=== PATIENT | female | born 1955 | race Caucasian/White ===

== ENCOUNTER 2017-02-10 21:58 | Observation (INO) ==
[2017-02-10] MEDS ORDERED: Nitroglycerin 1 INCH/GM PACKET TP ONE (22:01)
--- NOTE | 2017-02-10 22:03 | Emergency Department Note ---
Disposition Clinical Impression: Chest pain Qualifiers: Chest pain type: unspecified Qualified Code(s): R07.9 - Chest pain, unspecified Disposition: Admitted As Inpatient Condition: Good Referrals: NO,PCP [Non-Partnered Physician] - Forms: ED Satisfaction Letter Chest Pain HPI - General Chief Complaint: ED Chest Pain Stated Complaint: Chest pain while shopping at [employer] - History of Present Illness HPI Narrative: Patient presents to the emergency department for evaluation of chest pain. Patient states that she developed substernal chest pressure while walking at [employer]. She denies radiation or migration of the pain. She states that she had some minimal dyspnea associated with this pain but no nausea vomiting or diaphoresis. EMS was contacted, she received 324 mg of aspirin and one sublingual nitroglycerin at the scene. Patient states that her pain is not resolved. She reports a history of coronary artery disease and a heart attack though she does not recall the history regarding this and does not know of any intervention was necessary for her prior cardiac event. - Related Data Home Medications Medication Instructions Recorded Confirmed Hydrochlorothiazide [Microzide] 12.5 mg PO DAILY 12/07/16 02/10/17 Lisinopril [Zestril] 80 mg PO DAILY 12/07/16 02/10/17 Sennosides/Docusate Sodium [Senna 1 each PO DAILY 12/07/16 02/10/17 Plus] Simvastatin [Zocor] 20 mg PO HS 12/07/16 02/10/17 Allergies Allergy/AdvReac Type Severity Reaction Status Date / Time Erythromycin Base Allergy Hives Verified 06/07/15 21:02 quetiapine [From Seroquel] Allergy Numbness Verified 06/07/15 21:02 Constitutional: Denies: fever, chills, weakness ENT ED: Denies: throat pain, dysphagia Cardiovascular: Reports: chest pain. Denies: palpitations, dyspnea on exertion , orthopnea, edema, paroxysmal nocturnal dyspnea Respiratory: Reports: dyspnea. Denies: cough, wheezes, hemoptysis, stridor Gastrointestinal: Denies: abdominal pain, nausea, vomiting, diarrhea, melena, hematochezia Genitourinary: Denies: urgency, dysuria Musculoskeletal: Denies: back pain, neck pain, joint swelling Integumentary: Denies: rash Neurological: Denies: headache, weakness, numbness, paresthesias Psychiatric: Denies: anxiety, depression Endocrine: Denies: fatigue Hematological/Lymphatic: Denies: easy bleeding Allergic/Immunologic: Denies: facial swelling Chest Pain PMH - Past Medical History Medical history: Reports: GERD, hyperlipidemia, hypertension, other (Thyroid nodule) Surgical history: Reports: no surgical history Psychiatric history: Reports: anxiety, bipolar, depression CLIENT ADMINISTRATOR history: Reports: cervical cancer - Social History Smoking Status: Never smoker Alcohol use: Reports: none Drug use: Reports: none Father Family Medical History Unknown: Yes (Patient reports a family history of coronary artery disease with father) Physical Exam - General Limitations: no limitations General appearance: alert, in no apparent distress (Patient resting comfortably smiling interactive alert and appropriate and cooperative) - Head Head exam: atraumatic, normocephalic - Eye Eye exam: Present: normal appearance. Absent: scleral icterus - ENT ENT exam: normal exam, normal oropharynx, mucous membranes moist - Neck Neck exam: Present: normal inspection - Chest Chest inspection: Present: normal inspection - Respiratory Respiratory exam: Present: normal lung sounds bilaterally - Cardiovascular Cardiovascular exam: Present: normal rhythm, normal heart sounds - Abdominal Exam Abdominal exam: Present: soft, Non-Tender, normal bowel sounds - Extremities Exam Extremities exam: Present: normal inspection, full ROM, normal capillary refill. Absent: tenderness, pedal edema, joint swelling, calf tenderness - Expanded Lower Extremity Exam Neurovascular/Tendon exam: Present: normal capillary refill. Absent: pulse deficit, motor deficit, sensory deficit, extremity cold to touch, pallor - Back Exam Back exam: Present: normal inspection. Absent: tenderness, CVA tenderness (R), CVA tenderness (L) - Neurological Exam Neurological exam: Present: alert, oriented X3 - Psychiatric Psychiatric exam: Present: normal affect, normal mood - Skin Skin exam: Present: warm, dry, intact Course Vital Signs Temperature 98.5 F 02/10/17 22:01 Pulse Rate 77 02/10/17 22:01 Respiratory Rate 16 02/10/17 22:01 Blood Pressure 183/99 02/10/17 22:01 O2 Sat by Pulse Oximetry 99 02/10/17 22:01 Temperature 98.5 F 02/10/17 22:03 Pulse Rate 69 02/10/17 23:26 Respiratory Rate 18 02/10/17 23:26 Blood Pressure 136/90 02/10/17 23:26 O2 Sat by Pulse Oximetry 98 02/10/17 23:26 Oxygen Delivery Oxygen Delivery Nasal Cannula Chest Pain - Medical Records I discussed the case with Dr. Mcneil at 2330. Patient will be admitted to the hospitalist service for serial cardiac enzymes and further evaluation of her symptoms. Patient continues to be asymptomatic at this time. - Lab Data Lab results reviewed: Yes I reviewed the patient's lab results. Result diagrams: 02/10/17 22:16 02/10/17 22:16 Lab Results 02/10/17 02/10/17 02/10/17 Range/Units 22:16 22:16 22:16 WBC 6.4 (4.3-11.1) K/mcL RBC 4.67 (3.82-4.97) M/mcL Hgb 13.3 (11.5-15.4) g/dL Hct 38.6 (35.3-44.9) % MCV 82.7 L (83.0-100.0) fL MCH 28.5 (28.0-33.3) pg MCHC 34.5 (31.6-35.5) g/dL RDW 12.4 (11.5-14.5) % Plt Count 222 (140-400) K/mcL MPV 10.5 (9.4-12.4) fL Immature Gran % 0.2 (0-4) % Seg Neutrophils % 64.5 % Lymphocytes % 24.5 % Monocytes % 10.0 % Eosinophils % 0.6 % Basophils % 0.2 % Neutrophils # 4.1 (1.6-8.9) K/mcL Lymphocytes # 1.6 (0.6-4.6) K/mcL Monocytes # 0.6 (0.0-1.3) K/mcL Eosinophils # 0.0 (0.0-0.6) K/mcL Basophils # 0.0 (0.0-0.2) K/mcL PT 11.1 (9.4-12.1) Seconds INR 1.0 APTT 32.3 (26.0-36.0) Seconds Sodium (136-145) mEq/L Potassium (3.5-4.5) mEq/L Chloride (98-109) mEq/L Carbon Dioxide (19-29) mEq/L BUN (7-20) mg/dL Creatinine (0.57-1.11) mg/dL Est GFR ( Amer) (> 60) Est GFR (Non-Af Amer) (> 60) BUN/Creatinine Ratio (6-26) Glucose (70-99) mg/dL Calculated Osmolality (280-300) Calcium (8.6-10.8) mg/dL Total Bilirubin 0.4 (0.2-1.2) mg/dL Direct Bilirubin 0.2 (0.0-0.5) mg/dL Indirect Bilirubin 0.2 (0.0-1.2) mg/dL AST 14 (5-34) Units/L ALT 12 (0-55) Units/L Alkaline Phosphatase 62 (38-126) Units/L Troponin I (0-0.03) ng/mL Serum Total Protein 6.8 (6.0-8.3) g/dL Albumin 4.0 (3.5-5.0) g/dL Globulin 2.8 (2.4-3.5) g/dL Albumin/Globulin Ratio 1.4 (1.1-2.2) Lipase 15 (8-78) Units/L 02/10/17 02/10/17 Range/Units 22:16 22:16 WBC (4.3-11.1) K/mcL RBC (3.82-4.97) M/mcL Hgb (11.5-15.4) g/dL Hct (35.3-44.9) % MCV (83.0-100.0) fL MCH (28.0-33.3) pg MCHC (31.6-35.5) g/dL RDW (11.5-14.5) % Plt Count (140-400) K/mcL MPV (9.4-12.4) fL Immature Gran % (0-4) % Seg Neutrophils % % Lymphocytes % % Monocytes % % Eosinophils % % Basophils % % Neutrophils # (1.6-8.9) K/mcL Lymphocytes # (0.6-4.6) K/mcL Monocytes # (0.0-1.3) K/mcL Eosinophils # (0.0-0.6) K/mcL Basophils # (0.0-0.2) K/mcL PT (9.4-12.1) Seconds INR APTT (26.0-36.0) Seconds Sodium 146 H (136-145) mEq/L Potassium 3.6 (3.5-4.5) mEq/L Chloride 109 (98-109) mEq/L Carbon Dioxide 24 (19-29) mEq/L BUN 8 (7-20) mg/dL Creatinine 0.72 (0.57-1.11) mg/dL Est GFR ( Amer) > 60 (> 60) Est GFR (Non-Af Amer) > 60 (> 60) BUN/Creatinine Ratio 11 (6-26) Glucose 101 H (70-99) mg/dL Calculated Osmolality 300 (280-300) Calcium 9.8 (8.6-10.8) mg/dL Total Bilirubin (0.2-1.2) mg/dL Direct Bilirubin (0.0-0.5) mg/dL Indirect Bilirubin (0.0-1.2) mg/dL AST (5-34) Units/L ALT (0-55) Units/L Alkaline Phosphatase (38-126) Units/L Troponin I 0.00 (0-0.03) ng/mL Serum Total Protein (6.0-8.3) g/dL Albumin (3.5-5.0) g/dL Globulin (2.4-3.5) g/dL Albumin/Globulin Ratio (1.1-2.2) Lipase (8-78) Units/L ITS Impressions Chest X-Ray 02/10/17 22:01 IMPRESSION: No acute process. D/ / 02/10/2017 22:53:06 Kuldeep Greco MD / carolyn Interpreting Provider: Kuldeep Greco MD - Radiology Data Radiology results reviewed: Yes I reviewed the patient's radiology results. - EKG Data EKG attestation: Yes I reviewed and interpreted this EKG. EKG shows normal: sinus rhythm (Normal sinus rhythm with rate of 74. Minimal ST depression in the inferior and anterior leads. No arrhythmia. Normal axis. When compared to an EKG from June 2014 these do not appear to be acute changes.)
[2017-02-10 22:24] LABS: Basophils % 0.2 %; Eosinophils % 0.6 %; Hematocrit 38.6 % (35.3-44.9); Hemoglobin 13.3 g/dL (11.5-15.4); Immature Granulocytes % 0.2 % (0-4); Lymphocytes # 1.6 K/mcL (0.6-4.6); Lymphocytes % 24.5 %; Mean Corpuscular HGB Conc 34.5 g/dL (31.6-35.5); Mean Corpuscular Hemoglobin 28.5 pg (28.0-33.3); Mean Corpuscular Volume 82.7 fL (83.0-100.0); Mean Platelet Volume 10.5 fL (9.4-12.4); Monocytes # 0.6 K/mcL (0.0-1.3); Neutrophils # 4.1 K/mcL (1.6-8.9); Platelet Count 222 K/mcL (140-400); Red Blood Count 4.67 M/mcL (3.82-4.97); Red Cell Distribution Width 12.4 % (11.5-14.5); Segmented Neutrophils % 64.5 %
[2017-02-10 22:34] LABS: Prothrombin Time 11.1 Seconds (9.4-12.1)
[2017-02-10 22:36] LABS: Activated Partial Thrombo Time 32.3 Seconds (26.0-36.0)
[2017-02-10 22:44] LABS: BUN/Creatinine Ratio 11 (6-26); Blood Urea Nitrogen 8 mg/dL (7-20); Calcium 9.8 mg/dL (8.6-10.8); Carbon Dioxide 24 mEq/L (19-29); Chloride 109 mEq/L (98-109); Glucose 101 mg/dL (70-99); Osmolality,Calculated 300 (280-300); Potassium 3.6 mEq/L (3.5-4.5); Sodium 146 mEq/L (136-145); eGFR For African Americans > 60 (> 60); eGFR For Non-African Americans > 60 (> 60)
[2017-02-10 22:45] LABS: Albumin/Globulin Ratio 1.4 (1.1-2.2); Bilirubin,Direct 0.2 mg/dL (0.0-0.5); Bilirubin,Indirect 0.2 mg/dL (0.0-1.2); Bilirubin,Total 0.4 mg/dL (0.2-1.2); Globulin 2.8 g/dL (2.4-3.5); Total Protein 6.8 g/dL (6.0-8.3)
[2017-02-10] MEDS ORDERED: Naloxone 0.4 MG/ML INJ IVP PRN (23:36)
[2017-02-11] MEDS ORDERED: *HR* HYDROcodone/Acet 5/325 mg TABLET PO PRN (02:25)
[2017-02-11 06:26] LABS: Basophils % 0.3 %; Eosinophils % 0.6 %; Hematocrit 36.3 % (35.3-44.9); Hemoglobin 12.4 g/dL (11.5-15.4); Immature Granulocytes % 0.3 % (0-4); Lymphocytes # 1.3 K/mcL (0.6-4.6); Lymphocytes % 20.9 %; Mean Corpuscular HGB Conc 34.2 g/dL (31.6-35.5); Mean Corpuscular Hemoglobin 28.3 pg (28.0-33.3); Mean Corpuscular Volume 82.9 fL (83.0-100.0); Mean Platelet Volume 11.2 fL (9.4-12.4); Monocytes # 0.4 K/mcL (0.0-1.3); Monocytes % 6.3 %; Neutrophils # 4.4 K/mcL (1.6-8.9); Platelet Count 204 K/mcL (140-400); Red Blood Count 4.38 M/mcL (3.82-4.97); Red Cell Distribution Width 12.2 % (11.5-14.5); Segmented Neutrophils % 71.6 %
[2017-02-11 06:51] LABS: BUN/Creatinine Ratio 11 (6-26); Blood Urea Nitrogen 8 mg/dL (7-20); Calcium 9.7 mg/dL (8.6-10.8); Carbon Dioxide 25 mEq/L (19-29); Chloride 108 mEq/L (98-109); Chol/HDL Ratio 2.9 (0-4.9); Cholesterol 157 mg/dL (< 200); Glucose 130 mg/dL (70-99); HDL Cholesterol 55 mg/dL (40-59); LDL Cholesterol,Calculated 92 mg/dL (0-99); Osmolality,Calculated 296 (280-300); Potassium 3.3 mEq/L (3.5-4.5); Sodium 143 mEq/L (136-145); Triglycerides 52 mg/dL (< 150); eGFR For African Americans > 60 (> 60); eGFR For Non-African Americans > 60 (> 60)
[2017-02-11] MEDS ORDERED: Ondansetron ODT 4 MG TAB.RAPDIS SL PRN (07:50)
[2017-02-11] MEDS ORDERED: Sennosides 8.6 MG TABLET PO SCH (09:00)
[2017-02-11] MEDS ORDERED: hydroCHLOROthiazide 25 MG TABLET PO SCH (09:00)
[2017-02-11] MEDS ORDERED: Lisinopril 20 MG TABLET PO SCH (09:00)
[2017-02-11 10:56] VITALS: BP 159/84
[2017-02-11] MEDS ORDERED: Ibuprofen 600 MG TABLET PO ONE (12:01)
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
--- NOTE | 2017-02-11 12:26 | Discharge Summary ---
Date of Encounter: 02/11/17 Time of Encounter: 11:20 - Discharge Diagnosis (1) Chest pain Priority: Primary Status: Acute Qualifiers: Chest pain type: unspecified Qualified Code(s): R07.9 - Chest pain, unspecified (2) Hypertension Priority: Secondary Status: Chronic Qualifiers: Hypertension type: essential hypertension Qualified Code(s): I10 - Essential (primary) hypertension - Discharge Medications Prescriptions: Metoprolol XL (24 HR) Succ [Toprol XL] 25 mg PO DAILY #30 tab.er.24h Potassium Chloride 10 meq PO DAILY #30 tab.er.prt Home Medications: Hydrochlorothiazide [Microzide] 12.5 mg PO DAILY 12/07/16 [History] Lisinopril [Zestril] 80 mg PO DAILY 12/07/16 [History] Sennosides/Docusate Sodium [Senna Plus] 1 each PO DAILY 12/07/16 [History] Simvastatin [Zocor] 20 mg PO HS 12/07/16 [History] Metoprolol XL (24 HR) Succ [Toprol XL] 25 mg PO DAILY #30 tab.er.24h 02/11/17 [ Rx] Potassium Chloride 10 meq PO DAILY #30 tab.er.prt 02/11/17 [Rx] Allergies/Adverse Reactions: Allergies Erythromycin Base Allergy (Verified 02/11/17 01:50) Hives quetiapine [From Seroquel] Allergy (Verified 02/11/17 01:51) Numbness acetaminophen [From [place]] Adverse Reaction (Verified 02/11/17 08:04) Nausea hydrocodone [From [place]] Adverse Reaction (Verified 02/11/17 08:04) Nausea Date of admission: 02/11/17 00:33 Primary care physician: Su Kerr CNP - Patient Status Disposition: Home, Self-Care Condition: Good Functional capacity at discharge: independent ambulation Overall status at discharge: patient is progressing back to baseline - Discharge Instructions Follow Up With: Su Kerr CNP [Primary Care Provider] - 1 week - Diet and Activity Activity: resume usual activities as tolerated Diet: advance to your usual diet Hospital course: Ms. Connolly is a 61 year old female who came to emergency room stating she had onset of discomfort in her chest approximately 9:30 PM while at leisure. She describes it as a gradual onset of a pressure type sensation in her left upper chest that radiates to her back. She did not take any medication at home for relief. She came to emergency room and was evaluated and admitted to [facility] for ongoing care needs. Initial orders were written by the emergency room physician. I saw her on February 11 and performed a history physical and discharge. Repeat cardiac enzymes showed no evidence of myocardial damage. When I saw her I did not think pain was likely to be of myocardial ischemic origin. I felt it was most likely chest wall origin since it could be reproduced somewhat by chest compression. By the time I saw her on February 11 she stated the chest pain had resolved. Her blood pressure remained above desirable range during hospital stay. I will add Toprol-XL 25 mg daily. Her potassium decreased to 3.3 on the day of discharge. Supplement potassium will be given at discharge. She will be discharged home to follow with her PCP Su Kerr CNP within 1 week. - Time Spent with Patient Total time spent providing and/or coordinating discharge services: - Constitutional Vitals: Temp Pulse Resp BP Pulse Ox 97.7 F 75 16 159/84 98 02/11/17 08:00 02/11/17 10:54 02/11/17 10:54 02/11/17 10:54 02/11/17 10:54
--- NOTE | 2017-02-11 12:36 | Electrocardiograph Report ---
[address] [address] Test Date: 2017-02-10 Pat Name: Dianne Connolly Department: [id number] Room: [facility] Gender: F [employer] Estimator: [id number] : 1955 Requested By: Alexis Sofia Order Number: [id number] Erich MD: Alexa Villatoro Measurements Intervals [place] Rate: 74 P: 76 WA: 162 QRS: 76 QRSD: 93 T: 62 QT: 369 QTc: 397 Interpretive Statements SINUS RHYTHM MODERATE ST DEPRESSION Electronically Signed On 02-11-2017 12:35:00 EDT by Alexa Villatoro
== END 2017-02-11 13:10 | disposition home or self-care (01) ==
LOC: INPPIK 21:58 → EMEROOPIK 21:58 → INPPIK 02-11 00:45
PROVIDERS: ADMIT Internal Medicine; ATTEND Internal Medicine